=== PATIENT | male | born 2000 | race Caucasian/White ===

== ENCOUNTER → 2023-06-08 | Emergency (ER) | payer BC ==
[~2023-06-08] MED LIST: NA CHLORIDE 0.9% 1,000 ML ONE
--- NOTE | 2023-06-08 11:55 | RAD REPORT ---
EXAM DESCRIPTION: CT - Head Brain Wo Cont - 06/08/2023 11:40 am CLINICAL HISTORY: Syncope COMPARISON: none TECHNIQUE: Computed axial tomography of the head was obtained. IV contrast was not requested. All CT scans are performed using dose optimization technique as appropriate and may include automated exposure control or mA/KV adjustment according to patient size. FINDINGS: An intracranial bleed is not seen The ventricles are normal in caliber No significant hypodense areas within the brain visualized No extra-axial fluid collection is noted. Fluid within the sinuses/ mastoids is not seen IMPRESSION: No acute intracranial abnormality is seen If patient's symptoms persist MRI of the brain would be recommended
[2023-06-08 12:40] LABS: Absolute Lymphocytes (CBC) 0.3 K/uL (0.7-4.9); Hematocrit 42.1 % (39.6-49.0); Lymphocytes % 3.8 % (15.3-44.8); MCV 92.4 fL (80-100); MPV 7.4 fL (7.6-11.3); Platelets 158 thou/uL (152-406); RBC Red Blood Cell Count 4.56 M/uL (4.33-5.43)
[2023-06-08 12:56] LABS: SARS-CoV-2 Antigen Rapid Res Positive (Negative); Urine Bacteria None Seen /HPF (<20); Urine Bilirubin NEGATIVE (Negative); Urine Blood Negative (Negative); Urine Clarity Clear (Clear); Urine Color Yellow (Yellow); Urine Glucose NEGATIVE (Negative); Urine Mucus Slight /HPF (None Seen); Urine Protein TRACE (Negative); Urine RBC <5 /HPF (None Seen); Urine Urobilinogen 1+ (Normal); Urine pH 6.5 (5.0-7.0)
--- NOTE | 2023-06-08 13:20 | EDPHYS ---
Physician Documentation [facility] Name: Esteban Parada Age: 23 yrs Sex: Male : 2000 Arrival Date: 06/08/2023 Time: 11:01 Bed DX1 Private MD: ED Physician Wil Penn HPI: 06/08 11:36 This 23 yrs old Male presents to ER via Ambulatory with complaints of Syncope, Fever. rn 11:36 The patient reports fever, not measured (subjective). Onset: The symptoms/episode rn began/occurred yesterday. Modifying factors: there are no obvious modifying factors. Associated signs and symptoms: Pertinent positives: chills, runny nose, sinus congestion, Pertinent negatives: abdominal pain, altered mental status, chest pain, skin rash, shortness of breath, swelling, vomiting. Severity of symptoms: At their worst the symptoms were moderate in the emergency department the symptoms have improved. The patient has not experienced similar symptoms in the past. The patient has not recently seen a physician. Pt reports fever that began yesterday, assoc with runny nose and congestion. Denies chest pain or abdominal pain. No shortness of breath. No vomiting or diarrhea. Patient states increase in urination. Got up to use the bathroom this morning and passed out. Single episode. Feels much better now. No history of diabetes. No new medication changes. No sick contacts but did start college again.. Historical: - Allergies: 11:18 No Known Allergies; ap3 - Home Meds: 11:18 Rinvoq 30 mg oral Tablet, Extended Release 24 hr [Active]; ap3 - Immunization history:: Client reports having NOT received the Covid vaccine. Flu vaccine is not up to date. - Social history:: Smoking status: Patient denies any tobacco usage or history of. - Family history:: not pertinent. - Hospitalizations: : No recent hospitalization is reported. ROS: 11:36 Constitutional: Negative for fever, chills, and weight loss, Eyes: Negative for injury, rn pain, redness, and discharge, ENT: Positive for sinus congestion and nasal drainage Neck: Negative for injury, pain, and swelling, Cardiovascular: Negative for chest pain, palpitations, and edema, Respiratory: Negative for shortness of breath, cough, wheezing, and pleuritic chest pain, Abdomen/GI: Negative for abdominal pain, nausea, vomiting, diarrhea, and constipation, Back: Negative for injury and pain, MS/Extremity: Negative for injury and deformity, Skin: Negative for injury, rash, and discoloration, Neuro: Positive for headache, negative for seizure Exam: 11:36 Constitutional: This is a well developed, well nourished patient who is awake, alert, rn and in no acute distress. Head/Face: Normocephalic, atraumatic. ENT: Dry mucous membranes, no stridor, no exudate Neck: Trachea midline, no masses palpated, and no cervical lymphadenopathy. Supple, full range of motion without nuchal rigidity, or vertebral point tenderness. No Meningismus. Cardiovascular: Tachycardic, regular. No pulse deficits. Respiratory: No increased work of breathing, no retractions or nasal flaring. Abdomen/GI: Soft, non-tender Neuro: Awake and alert, GCS 15 16:17 ECG was reviewed by the Attending Physician. rn Vital Signs: 11:16 BP 134 / 86; Pulse 92; Resp 17; Temp 99.2; Pulse Ox 100% ; Weight 106.59 kg; Height 6 ap3 ft. 1 in. ; 13:23 BP 135 / 70; Pulse 86; Resp 20 S; Temp 98.7(O); Pulse Ox 99% on R/A; as6 11:16 Body Mass Index 31.00 (106.59 kg, 185.42 cm) ap3 MDM: 11:13 Patient medically screened. rn 13:19 Differential diagnosis: viral Infection, bacterial infection, URI, UTI. rn 13:19 Data reviewed: vital signs, nurses notes, lab test result(s), radiologic studies, CT rn scan, and as a result, I will discharge patient. Counseling: I had a detailed discussion with the patient and/or guardian regarding the historical points, exam findings, and any diagnostic results supporting the discharge/admit diagnosis, lab results, radiology results, the need for outpatient follow up, to return to the emergency department if symptoms worsen or persist or if there are any questions or concerns that arise at home. Response to treatment: the patient's symptoms have markedly improved after treatment, and as a result, I will discharge patient. Special discussion: I discussed with the patient/guardian in detail that at this point there is no indication for admission to the hospital. It is understood, however, that if the symptoms persist or worsen the patient needs to return immediately for re-evaluation. 06/08 11:29 Order name: CBC with Diff ap3 06/08 11:29 Order name: Basic Metabolic Panel; Complete Time: 12:56 ap3 06/08 11:29 Order name: SARS RAPID; Complete Time: 12:56 ap3 06/08 11:29 Order name: Flu; Complete Time: 13:19 ap3 06/08 11:29 Order name: Strep ap3 06/08 11:29 Order name: Urinalysis w/ reflexes; Complete Time: 12:56 ap3 06/08 11:42 Order name: Glucose, Ancillary Testing; Complete Time: 11:46 EDMS 06/08 12:56 Order name: Throat Culture EDMS 06/08 11:31 Order name: CT Head Brain wo Cont; Complete Time: 12:20 ap3 06/08 11:30 Order name: EKG; Complete Time: 11:30 ap3 06/08 11:29 Order name: IV Start; Complete Time: 12:35 ap3 06/08 11:29 Order name: Glucose Level; Complete Time: 12:13 ap3 06/08 11:30 Order name: EKG - Nurse/Tech; Complete Time: 12:22 ap3 EC:17 Rate is 101 beats/min. Rhythm is regular. QRS [place] is Normal. AL interval is normal. rn QRS interval is normal. QT interval is normal. No Q waves. T waves are Normal. No ST changes noted. Clinical impression: Sinus tachycardia. Interpreted by me. Reviewed by me. Administered Medications: 12:35 Drug: NS 0.9% IV 1000 ml IV at 1000 ml once Route: IV; Rate: 1000 ml; Site: left as6 antecubital; 13:22 Follow up: Response: No adverse reaction; IV Status: Completed infusion; IV Intake: as6 1000ml Disposition Summary: 06/08/23 13:20 Discharge Ordered Notes: Location: Home rn Problem: new rn Symptoms: have improved rn Condition: Stable rn Diagnosis - SARS-associated coronavirus as the cause of diseases classified elsewhere rn - Dehydration rn - Syncope rn Followup: rn - With: Private Physician - When: As needed - Reason: Recheck today's complaints, Re-evaluation by your physician Discharge Instructions: - Discharge Summary Sheet rn - Dehydration, Adult rn - COVID-19 rn - Viral Illness, Adult rn Forms: - Medication Reconciliation Form rn - Thank You Letter rn - Antibiotic technical internship - Prescription Opioid Use rn - Patient Portal Instructions rn - Leadership Thank You Letter rn - School release form as6 Signatures: Dispatcher [employer] Wil Dong MD MD rn Prokisch, Amanda, RN RN ap3 Héctor Du RN RN as6 Corrections: (The following items were deleted from the chart) 11:41 11:36 Constitutional: This is a well developed, well nourished patient who is awake, rn alert, and in no acute distress. Head/Face: Normocephalic, atraumatic. ENT: Dry mucous membranes, no stridor, no exudate Cardiovascular: Tachycardic, regular. No pulse deficits. Respiratory: No increased work of breathing, no retractions or nasal flaring. Abdomen/GI: Soft, non-tender Neuro: Awake and alert, GCS 15 rn
--- NOTE | 2023-06-08 13:20 | ER ---
Nurse's Notes [facility] Name: Esteban Parada Age: 23 yrs Sex: Male : 2000 Arrival Date: 06/08/2023 Time: 11:01 Bed DX1 Private MD: Diagnosis: SARS-associated coronavirus as the cause of diseases classified elsewhere;Dehydration;Syncope Presentation: 06/08 11:16 Chief complaint: Patient states: he started having fever last night with a "sinus ap3 inflammation". Patient reports when he woke up he felt like he couldn't hear out of his left ear and was nauseated. Patient states he has had "multiple" syncopal episodes this morning when ambulating. Patient reports symptoms have since improved. Coronavirus screen: At this time, the client does not indicate any symptoms associated with coronavirus-19. Ebola Screen: No symptoms or risks identified at this time. Initial Sepsis Screen: Does the patient meet any 2 criteria? HR > 90 bpm. No. Patient's initial sepsis screen is negative. Does the patient have a suspected source of infection? No. Patient's initial sepsis screen is negative. Risk Assessment: Do you want to hurt yourself or someone else? Patient reports no desire to harm self or others. Onset of symptoms was June 08, 2023. 11:16 Method Of Arrival: Ambulatory ap3 11:16 Acuity: LORY 3 ap3 Triage Assessment: 11:19 General: Appears in no apparent distress. Behavior is calm, cooperative, appropriate ap3 for age. General: Reports chills for fever for. Pain: Denies pain. EENT: Reports nasal congestion nasal discharge. Neuro: Reports a syncopal episode. Cardiovascular: Patient's skin is warm and dry. Respiratory: Airway is patent Respiratory effort is even, unlabored, Respiratory pattern is regular, symmetrical. Historical: - Allergies: 11:18 No Known Allergies; ap3 - Home Meds: 11:18 Rinvoq 30 mg oral Tablet, Extended Release 24 hr [Active]; ap3 - Immunization history:: Client reports having NOT received the Covid vaccine. Flu vaccine is not up to date. - Social history:: Smoking status: Patient denies any tobacco usage or history of. - Family history:: not pertinent. - Hospitalizations: : No recent hospitalization is reported. Screenin:20 [facility] ED Fall Risk Assessment (Adult). Abuse screen: Denies threats or abuse. ap3 Nutritional screening: No deficits noted. Tuberculosis screening: No symptoms or risk factors identified. Assessment: 12:35 General: Appears in no apparent distress. Behavior is calm, cooperative. General: as6 Reports feeling ill for fatigue for. Pain: Complains of pain in head. Neuro: Level of Consciousness is awake, alert, obeys commands, Oriented to person, place, time, situation, Reports dizziness, headache. Cardiovascular: Reports lightheadedness, Denies chest pain. Respiratory: Respiratory effort is even, unlabored, Respiratory pattern is regular, symmetrical. GI: No deficits noted. No signs and/or symptoms were reported involving the gastrointestinal system. : No deficits noted. No signs and/or symptoms were reported regarding the genitourinary system. EENT: No deficits noted. No signs and/or symptoms were reported regarding the EENT system. Derm: Skin is intact, is healthy with good turgor. Musculoskeletal: Circulation, motion, and sensation intact. Vital Signs: 11:16 BP 134 / 86; Pulse 92; Resp 17; Temp 99.2; Pulse Ox 100% ; Weight 106.59 kg; Height 6 ap3 ft. 1 in. ; 13:23 BP 135 / 70; Pulse 86; Resp 20 S; Temp 98.7(O); Pulse Ox 99% on R/A; as6 11:16 Body Mass Index 31.00 (106.59 kg, 185.42 cm) ap3 ED Course: 11:04 Patient arrived in ED. mg5 11:13 Wil Penn MD is Attending Physician. rn 11:18 Triage completed. ap3 11:20 Arm band placed on left wrist. ap3 11:40 CT Head Brain wo Cont In Process Unspecified. EDMS 12:13 Héctor Du, JENNIFER is Primary Nurse. as6 12:35 Inserted saline lock: 20 gauge in left antecubital area, using aseptic technique. Blood as6 collected. 12:36 Bed in low position. Call light in reach. Adult w/ patient. as6 13:22 Provided Education on: follow up. as6 13:22 No provider procedures requiring assistance completed. as6 13:30 IV discontinued, intact, bleeding controlled, No redness/swelling at site. Pressure as6 dressing applied. Administered Medications: 12:35 Drug: NS 0.9% IV 1000 ml IV at 1000 ml once Route: IV; Rate: 1000 ml; Site: left as6 antecubital; 13:22 Follow up: Response: No adverse reaction; IV Status: Completed infusion; IV Intake: as6 1000ml Medication: 12:36 VIS not applicable for this client. as6 Intake: 13:22 IV: 1000ml; Total: 1000ml. as6 Outcome: 13:20 Discharge ordered by rn 13:22 Discharged to home ambulatory, with family, as6 13:22 Condition: stable 13:30 Discharge instructions given to patient, family, Instructed on discharge instructions, as6 follow up and referral plans. Demonstrated understanding of instructions, follow-up care, 13:30 Patient left the ED. as6 Signatures: Dispatcher [employer] EDWil Mcelroy MD MD rn Prokisch, Amanda, RN RN ap3 Héctor Du RN RN as6 Katie Haq 5
[2023-06-08 13:58] LABS: Blood Morphology Comment NOT SEEN (NOT SEEN); Platelet Estimate ADEQ; White Blood Cell Scan OK (OK)
[2023-06-08 15:21] VITALS: BP 135/70; TEMP 98.7; O2SAT 99
--- NOTE | 2023-06-09 16:29 | EKG ---
Test Date: 2023-06-08 Test Time: 12:19:03 Mid Level Game Designer: DAVID MEASUREMENT RESULTS: Intervals: Rate: 101 HI: 138 QRSD: 92 QT: 336 QTc: 435 Jenkins: P: 74 HI: 138 QRS: 62 T: 69 INTERPRETIVE STATEMENTS: Sinus tachycardia Otherwise normal ECG No previous ECG available for comparison Electronically Signed On 06-09-23 16:26:10 [employer] by Ruddy Mullins
== END ==
LOC: ER 11:01
DX: U07.1 COVID-19 (principal); E86.0 Dehydration; R55 Syncope and collapse
CPT/HCPCS: 93005; 87070; 85025; 81001; 80048; 36415; 82947; 87081; 87804 ×2; 70450; 96360; 99284; 87811; J7030